=== PATIENT | female | born 1970 | race African-American/Black ===

== ENCOUNTER 2017-11-14 20:45 | Emergency (ER) | payer OTHER ==
[~2017-11-14] VITALS: Ht 170.2 cm; Wt 86.0 kg
[2017-11-14 21:08] VITALS: BP 134/92
== END 2017-11-15 03:20 | disposition left against medical advice (07) ==
LOC: ER 20:45
DX: S61.412A Laceration without foreign body of left hand, initial encounter (principal); Z53.21 Procedure and treatment not carried out due to patient leaving prior to being seen by health care provider; W27.2XXA Contact with scissors, initial encounter; Y93.89 Activity, other specified; Y92.89 Other specified places as the place of occurrence of the external cause; Y99.8 Other external cause status